=== PATIENT | female | born 1975 | race African-American/Black ===

== ENCOUNTER 2018-12-02 08:20 | Emergency (ER) | payer OTHER, MEDICAID ==
[~2018-12-02] VITALS: Ht 170.2 cm; Wt 86.2 kg
[2018-12-02 08:39] VITALS: BP 109/72
== END 2018-12-02 10:10 | disposition home or self-care (01) ==
LOC: ER 08:20
DX: J32.9 Chronic sinusitis, unspecified (principal); H60.91 Unspecified otitis externa, right ear; J02.9 Acute pharyngitis, unspecified

== ENCOUNTER 2019-06-06 11:45 | Emergency (ER) | payer MEDICAID, OTHER ==
[~2019-06-06] VITALS: Ht 170.2 cm; Wt 89.8 kg
[2019-06-06 12:53] LABS: Urine Bacteria FEW /hpf (None Seen); Urine Blood Negative /uL (Negative); Urine Specific Gravity 1.005 (1.001-1.035); Urine WBC 3 /hpf (0 - 5)
[2019-06-06 13:20] LABS: Basophils # (auto) 0 uL; Basophils % (auto) 0.5 % (0.0-2.0); Eosinophils # (auto) 0.1 uL; Eosinophils % (auto) 0.6 % (0.0-7.0); Hematocrit 40.5 % (36.0-46.0); Hemoglobin 13.4 g/dL (12.2-16.2); Lymphocytes # (auto) 1.7 uL; Lymphocytes % (auto) 20.8 % (10.0-50.0); Mean Corpuscular Hemoglobin 29.8 pg (28.0-32.0); Mean Corpuscular Volume 90.5 fL (80.0-100.0); Monocytes # (auto) 0.7 uL; Monocytes % (auto) 8.4 % (0.0-12.0); Neutrophils # (auto) 5.7 uL; Neutrophils % (auto) 69.7 % (37.0-80.0); Platelet Count (auto) 262 10^3/uL (140-450); Red Blood Cells 4.47 10^6/uL (4.0-5.20); Red Cell Distribution Width 13.9 % (11.8-14.3); White Blood Cell 8.2 10^3/uL (4.4-10.8)
[2019-06-06 14:37] LABS: Albumin 3.8 g/dL (3.4-5.0); Calcium 9.2 mg/dL (8.5-10.1); Potassium 3.9 mmol/L (3.5-5.1)
[2019-06-06 14:42] LABS: Bilirubin, Total 0.4 mg/dL (0.2-1.0); Total Protein 8.1 g/dL (6.4-8.2)
[2019-06-06 15:45] VITALS: BP 129/73
== END 2019-06-06 16:02 | disposition home or self-care (01) ==
LOC: ER 11:45
DX: N20.0 Calculus of kidney (principal); M79.7 Fibromyalgia
CPT/HCPCS: 36415; 74176; 80053; 81001; 81025; 83735; 85025

== ENCOUNTER 2020-08-11 06:34 | Emergency (ER) | payer BC, MEDICAID ==
[~2020-08-11] VITALS: Ht 170.2 cm; Wt 86.2 kg
[2020-08-11 06:35] VITALS: BP 129/78
== END 2020-08-11 07:51 | disposition home or self-care (01) ==
LOC: ER 06:34
DX: J01.90 Acute sinusitis, unspecified (principal)